=== PATIENT | female | born 1990 | race American Indian/Alaskan Native ===

== ENCOUNTER 2017-02-16 19:28 | Outpatient (CLI) | payer OTHER ==
[2017-02-16 19:41] VITALS: BP 105/59
[2017-02-16] MEDS ORDERED: LACTATED RINGERS 500 ML IV ONE (20:15)
== END 2017-02-16 20:33 | disposition home or self-care (01) ==
LOC: TRG 19:28
PROVIDERS: ATTEND Obstetrics & Gynecology
DX: O21.2 Late vomiting of pregnancy (principal); O26.893 Other specified pregnancy related conditions, third trimester; R10.9 Unspecified abdominal pain; R06.02 Shortness of breath; Z3A.36 36 weeks gestation of pregnancy

== ENCOUNTER 2017-04-16 21:57 | Outpatient (CLI) | payer MEDICAID, OTHER ==
[2017-04-16 23:07] LABS: Urine Drugs of Abuse Note Disclamer
[2017-04-16 23:17] LABS: Bilirubin,Urine NEG (Negative); Blood,Urine NEG (Negative); Ketones,Urine NEG (Negative); Leukocyte Esterase,Urine MOD (Negative); Mucus,Urine FEW /HPF; Nitrite,Urine NEG (Negative); Protein,Urine <15 mg/dL mg/dL (Negative)
[2017-04-16 23:53] LABS: Basophils % (Auto) 0.8 % (0.0-1.8); Hematocrit 26.5 % (30.3-42.9); Hemoglobin 8.6 gm/dl (10.1-14.3); Mean Corpuscular HGB Conc 32 % (30-34); Mean Corpuscular Volume 75 fl (79-97); Platelet Count 248 K/mm3 (140-440); Red Blood Count 3.55 M/mm3 (3.65-5.03); White Blood Count 5.8 K/mm3 (4.5-11.0)
[2017-04-16 23:54] LABS: Mean Corpuscular Hemoglobin 24 pg (28-32)
--- NOTE | 2017-04-17 00:04 | Ultrasound Report ---
FINAL REPORT EXAM: US OB > = 14 WEEKS FETUS HISTORY: no care COMPARISON: None available. TECHNIQUE: Several real-time grayscale and color Doppler images were obtained. FINDINGS: Single live IUP. Estimated gestational age 28 weeks 1 day. Estimated delivery date July 08, 2017. heart rate 150 beats per minute. Estimated weight 1168 grams. BPD 28 weeks 2 days. Head circumference 28 weeks 5 days. Abdominal circumference 27 weeks 6 days. Femoral length 28 weeks 0 days. Normal RENEE 10.6 centimeters. The cervix is closed and measures 3.2 centimeters in length. Placenta location posterior. No placenta previa. position vertex. Visualized heart, stomach, urinary bladder, kidneys, cerebral ventricles are unremarkable. Three-vessel umbilical cord with abdominal insertion. IMPRESSION: Single live IUP. Estimated gestational age 28 weeks 1 day. Estimated delivery date July 08, 2017. No or placental abnormality demonstrated.
[2017-04-17 00:20] LABS: HIV-1 Antigen p24 Non React (Non React); HIVR-1/2 Ab Non React (Non React)
== END 2017-04-16 23:43 | disposition home or self-care (01) ==
LOC: TRG 21:57
PROVIDERS: ATTEND Obstetrics & Gynecology
DX: O47.03 False labor before 37 completed weeks of gestation, third trimester (principal); Z3A.28 28 weeks gestation of pregnancy
CPT/HCPCS: 36415; 59025; 76805; 80307; 81001; 85025; 85660; 86592; 86706; 86762; 86803; 87806

== ENCOUNTER 2017-06-13 14:32 | Outpatient (CLI) | payer MEDICAID ==
[2017-06-13 15:27] LABS: Bilirubin,Urine NEG (Negative); Blood,Urine NEG (Negative); Color,Urine Yellow (Yellow); Mucus,Urine FEW /HPF; Nitrite,Urine NEG (Negative); Protein,Urine <15 mg/dL mg/dL (Negative)
[2017-06-13 15:28] VITALS: BP 109/57
[2017-06-13 16:50] LABS: Amphetamine Screen,Urine PRESUMPTIVE NEGATIVE; Benzodiazepines Screen,Urine PRESUMPTIVE NEGATIVE; Cannabinoid Screen,Urine PRESUMPTIVE NEGATIVE; Cocaine Screen,Urine PRESUMPTIVE NEGATIVE; Methadone Screen,Urine PRESUMPTIVE NEGATIVE; Opiate Screen,Urine PRESUMPTIVE NEGATIVE
--- NOTE | 2017-06-13 19:39 | Ultrasound Report ---
FINAL REPORT EXAM: US OB LIMITED HISTORY: POSSIBLE LEAKING FLUID, RENEE ONLY TECHNIQUE: Real-time sonography was performed of the gravid uterus for measurement the amniotic fluid index and images are submitted for interpretation. PRIORS: 04/16/2017 FINDINGS: There is a single fetus in the uterus in a cephalic presentation. Anatomic survey was not performed. The amniotic fluid index is normal at a 8.4 cm. The heart is beating at a rate of 142 beats per minute. IMPRESSION: Normal amniotic fluid index at 8.4 cm
== END 2017-06-13 18:07 | disposition home or self-care (01) ==
LOC: TRG 14:32
PROVIDERS: ATTEND Obstetrics & Gynecology
DX: Z34.93 Encounter for supervision of normal pregnancy, unspecified, third trimester (principal); Z3A.36 36 weeks gestation of pregnancy
CPT/HCPCS: 76815; 80307; 81001; 87116

== ENCOUNTER 2017-06-20 23:10 | Outpatient (CLI) | payer MEDICAID ==
[2017-06-20 23:25] VITALS: BP 130/85
== END 2017-06-21 00:20 | disposition home or self-care (01) ==
LOC: TRG 23:10
PROVIDERS: ATTEND Obstetrics & Gynecology
DX: O47.1 False labor at or after 37 completed weeks of gestation (principal); Z3A.37 37 weeks gestation of pregnancy
CPT/HCPCS: 59025

== ENCOUNTER 2017-06-22 21:18 | Inpatient (IN) | payer MEDICAID ==
[2017-06-22] MEDS ORDERED: PITOCin/NS 20 UNIT/1000ML DRIP 20,000 MILLIUNITS/1,000 ML BAG IV ONE (21:29)
[2017-06-22] MEDS ORDERED: CYTOTEC ONE (21:45)
[2017-06-22] MEDS ORDERED: METHERGINE IM ONE ×2 (21:46→23:02)
--- NOTE | 2017-06-22 21:53 | Procedure Note ---
OB Delivery Note - Delivery Date of Delivery: 06/22/17 Surgeon: LYNSEY LAKHANI Estimated blood loss: 200cc - Vaginal Delivery presentation: vertex Delivery position: OA Intrapartum events: precipitous labor- <3hr Delivery induction: none Delivery monitor: external FHT, external uterine Route of delivery: Delivery placenta: spontaneous Delivery cord: nuchal cord (tight and cut at perineum), 3 umbilical vessels Episiotomy: none Delivery laceration: 1st degree Anesthesia: none - Infant A at 1 minute: 8 at 5 minutes: 9 Infant Gender: Male (Time of delivery was 21:46, weight is 6#10 or 3015 g)
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
[2017-06-22 22:57] LABS: Basophils % (Auto) 0.4 % (0.0-1.8); Eosinophils # (Auto) 0.1 K/mm3 (0.0-0.4); Eosinophils % (Auto) 1.7 % (0.0-4.3); Hematocrit 27.9 % (30.3-42.9); Hemoglobin 8.7 gm/dl (10.1-14.3); Lymphocytes # (Auto) 2.3 K/mm3 (1.2-5.4); Lymphocytes % (Auto) 36.7 % (13.4-35.0); Mean Corpuscular HGB Conc 31 % (30-34); Monocytes # (Auto) 0.8 K/mm3 (0.0-0.8); Monocytes % (Auto) 12.9 % (0.0-7.3); Platelet Count 289 K/mm3 (140-440); Red Blood Count 4.07 M/mm3 (3.65-5.03)
[2017-06-22 23:00] LABS: Mean Corpuscular Hemoglobin 21 pg (28-32); Mean Corpuscular Volume 69 fl (79-97); Red Cell Distribution Width 20.4 % (13.2-15.2)
[2017-06-22] MEDS ORDERED: LACTATED RINGERS 1,000 ML IV SCH (23:00)
[2017-06-22] MEDS ORDERED: PITOCin/NS 20 UNIT/1000ML DRIP 20 UNITS/1,000 ML BAG IV SCH (23:00)
[2017-06-22] MEDS ORDERED: CYTOTEC PR ONE (23:02)
[2017-06-22 23:29] LABS: Amphetamine Screen,Urine PRESUMPTIVE NEGATIVE; Benzodiazepines Screen,Urine PRESUMPTIVE NEGATIVE; Cannabinoid Screen,Urine PRESUMPTIVE NEGATIVE; Cocaine Screen,Urine PRESUMPTIVE NEGATIVE; Methadone Screen,Urine PRESUMPTIVE NEGATIVE; Opiate Screen,Urine PRESUMPTIVE NEGATIVE
[2017-06-22 23:31] LABS: Hepatitis C Virus Antibody Non-Reactive (NonReactive)
[2017-06-22 23:55] LABS: Rubella IgG Antibody 500 (Immune)
[2017-06-23] MEDS ORDERED: DULCOLAX PR PRN (00:13)
[2017-06-23] MEDS ORDERED: ZOFRAN IV PRN (00:13)
[2017-06-23] MEDS ORDERED: SODIUM CHLORIDE FLUSH SYRINGE 10 ML IV PRN (00:13)
[2017-06-23] MEDS ORDERED: PHENERGAN PO PRN (00:13)
[2017-06-23] MEDS ORDERED: MILK OF MAGNESIA PO PRN (00:13)
[2017-06-23] MEDS ORDERED: TYLENOL PO PRN (00:13)
[2017-06-23] MEDS ORDERED: TUCKS PAD TP PRN (00:13)
[2017-06-23] MEDS ORDERED: LANSINOH TP PRN (00:13)
[2017-06-23] MEDS ORDERED: BENADRYL PO PRN (00:13)
[2017-06-23] MEDS: MOTRIN PO SCH ×4 (01:18→21:33)
--- NOTE | 2017-06-23 08:26 | Progress Note ---
Assessment and Plan Patient doing well, no complaints. lochia scant, VSSAF, post delivery H&H ordered for 1100, patient denies any s/s anemia (she has preexisting anemia) FE ordered. Continue pathway, anticipate d/c home tomorrow if stable. - Patient Problems (1) Vaginal delivery Current Visit: Yes Status: Acute (2) Anemia Current Visit: Yes Status: Acute Subjective - Subjective Date of service: 06/23/17 Principal diagnosis: day #1 s/p vag delivery, no care Patient reports: appetite normal, voiding normally, pain well controlled, ambulating normally, no dizzy ambulation, no nauseated : doing well, bottle feeding Objective - Vital Signs Latest vital signs: Vital Signs Temp Pulse Resp BP BP Pulse Ox 06/23/17 04:19 99.3 F 102/45 06/23/17 00:00 99.5 F 72 18 120/77 99 06/22/17 23:30 83 100 06/22/17 23:25 79 99 06/22/17 23:20 75 135/65 99 06/22/17 23:15 75 99 06/22/17 23:10 79 99 06/22/17 23:05 88 100 06/22/17 23:00 75 100 06/22/17 22:55 76 100 06/22/17 22:50 83 146/63 100 06/22/17 22:45 76 99 06/22/17 22:43 74 144/63 06/22/17 22:41 75 152/63 06/22/17 22:40 78 100 06/22/17 22:35 85 61/25 06/22/17 22:19 76 134/71 06/22/17 22:05 86 16 133/71 133/71 06/22/17 21:51 87 16 134/74 06/22/17 21:50 87 134/74 Intake and Output 06/22/17 06/23/17 06/23/17 23:59 07:59 15:59 Output Total 700 Balance -700 Output: Urine 700 Void 700 Other: Total, Output Amount 400 # Voids Void 2 Weight 54.431 kg Estimated Blood Loss 200 - Exam Breasts: Present: normal Cardiovascular: Present: Regular rate Lungs: Present: Clear to auscultation, Normal air movement Abdomen: Present: normal appearance, soft, normal bowel sounds Vulva: both: laceration/episiotomy Uterus: Present: normal, firm, fundal height at umbilicus Extremities: Present: normal Deep Tendon Reflex Grade: Normal +2 - Labs Labs: Abnormal lab results 06/22/17 Range/Units 21:00 Hgb 8.7 L (10.1-14.3) gm/dl Hct 27.9 L (30.3-42.9) % MCV 69 L (79-97) fl MCH 21 L (28-32) pg RDW 20.4 H (13.2-15.2) % Lymph % (Auto) 36.7 H (13.4-35.0) % [place] % (Auto) 12.9 H (0.0-7.3) %
[2017-06-23 12:06] LABS: Hematocrit 27.8 % (30.3-42.9); Hemoglobin 8.9 gm/dl (10.1-14.3)
[2017-06-23] MEDS: COLACE PO SCH ×2 (18:15→21:33)
[2017-06-23] MEDS: FEOSOL PO SCH ×2 (18:15→21:33)
[2017-06-24] MEDS: MOTRIN PO SCH ×2 (06:23→18:05)
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
[2017-06-24] MEDS: COLACE PO SCH (18:04)
[2017-06-24] MEDS: FEOSOL PO SCH (18:05)
[2017-06-24 18:15] VITALS: BP 108/73
== END 2017-06-24 18:30 | disposition home or self-care (01) | DRG 775 ==
LOC: TRG 21:18 → LD 21:27 → OB 23:49
PROVIDERS: ADMIT Obstetrics & Gynecology; ATTEND Internal Medicine
PROC: 10E0XZZ Delivery of Products of Conception, External Approach (ICD-10-PCS; principal; 2017-06-22)
PROC: 10E0XZZ Delivery of Products of Conception, External Approach (ICD-10-PCS; 2017-06-22)
PROC: 0HQ9XZZ Repair Perineum Skin, External Approach (ICD-10-PCS; 2017-06-22)
DX: O62.3 Precipitate labor (principal); Z3A.37 37 weeks gestation of pregnancy; Z37.0 Single live birth; O70.0 First degree perineal laceration during delivery; Z83.3 Family history of diabetes mellitus; O99.02 Anemia complicating childbirth; D64.9 Anemia, unspecified; O69.1XX0 Labor and delivery complicated by cord around neck, with compression, not applicable or unspecified
CPT/HCPCS: 36415; 80307; 85014; 85018; 85025; 86592; 86706; 86762; 86803; 86850; 86900; 86901; 87806; 99211; G0463; J2210; J2590

== ENCOUNTER 2019-09-13 11:27 | Outpatient (CLI) | payer MEDICAID ==
[2019-09-13 11:52] VITALS: BP 133/74
[2019-09-13] MEDS ORDERED: LACTATED RINGERS 1,000 ML IV SCH (12:00)
[2019-09-13 12:38] LABS: Amorphous Crystals,Urine Few; Bacteria,Urine 2+ /HPF (Negative); Bilirubin,Urine NEG (Negative); Blood,Urine NEG (Negative); Color,Urine Yellow (Yellow); Protein,Urine <15 mg/dL mg/dL (Negative)
== END 2019-09-13 18:36 | disposition home or self-care (01) ==
LOC: TRG 11:27 → APU 11:27 → TRG 18:36
PROVIDERS: ATTEND Obstetrics & Gynecology
DX: O26.893 Other specified pregnancy related conditions, third trimester (principal); R10.9 Unspecified abdominal pain; M54.9 Dorsalgia, unspecified; O47.03 False labor before 37 completed weeks of gestation, third trimester; Z3A.33 33 weeks gestation of pregnancy
CPT/HCPCS: 59025; 81001; 96360; J7120

== ENCOUNTER 2019-10-01 21:05 | Inpatient (IN) | payer MEDICAID ==
[2019-10-01] MEDS ORDERED: LACTATED RINGERS 1,000 ML IV ONE (22:11)
[2019-10-01 22:52] LABS: Bilirubin,Urine NEG (Negative); Blood,Urine NEG (Negative); Color,Urine Yellow (Yellow); Mucus,Urine 3+ /HPF; Protein,Urine <15 mg/dL mg/dL (Negative)
[2019-10-01] MEDS ORDERED: ONDANSETRON 4 MG/2 ML INJ IV ONE (23:58)
[2019-10-01] MEDS ORDERED: ACETAMINOPHEN 500 MG TAB PO ONE (23:59)
[2019-10-02] MEDS ORDERED: fentaNYL 100 MCG/2 ML INJ IV ONE (01:22)
[2019-10-02] MEDS: LACTATED RINGERS 1,000 ML IV SCH ×3 (01:47→17:03)
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
[2019-10-02] MEDS ORDERED: BETAMET ACET/BETAMET NA PH 6 MG/ML INJ 5 ML MDV IM NR (09:00)
[2019-10-02] MEDS ORDERED: AMPICILLIN/NS 2 GM/100 ML 2 GM/100 ML BAG IV ONE (09:00)
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
[2019-10-02] MEDS ORDERED: DOCUSATE SODIUM 100 MG CAP PO PRN (09:31)
[2019-10-02] MEDS ORDERED: ACETAMINOPHEN 325 MG TAB PO PRN ×2 (09:31→21:19)
[2019-10-02] MEDS ORDERED: PRENATAL VIT27-FE FUMARATE-FOLIC ACID VIT TAB PO SCH (10:00)
--- NOTE | 2019-10-02 10:16 | Ultrasound Report ---
ULTRASOUND OBSTETRIC ULTRASOUND BIOPHYSICAL PROFILE INDICATION: Assess weight and amniotic fluid index. Evaluate for placental abruption. Clinical Gestational Age (GA): 36 weeks, 5 days TECHNIQUE: Transabdominal. COMPARISON: OB ultrasound from 06/13/2017. FINDINGS: There is a single intrauterine . Biparietal Diameter = 8.6 cm = 34 weeks, 4 day(s). Head Circumference = 31.1 cm = 34 weeks, 6 day(s). Abdominal Circumference = 31.2 cm = 35 weeks, 1 day(s). Femur Length = 7.2 cm = 37 weeks, 0 day(s). Average Ultrasound Age (AUA) = 35 weeks, 3 day(s). Heart Rate: 151 beats per minute. Estimated Weight in grams (if calculated): 2710 Estimated Weight Growth Percentile (if calculated): Not provided. Position: cephalic. Cervix: closed. Length in cm (if measured): Not measured. Placenta: anterofundal and free of the os. Amniotic Fluid Volume: normal Amniotic Fluid Index (RENEE) in cm (if calculated): 14.7. Maternal Adnexa: No significant abnormality. Biophysical profile: BREATHING MOVEMENT = 2 GROSS BODY MOVEMENT = 2 TONE = 2 QUALITATIVE AMNIOTIC FLUID VOLUME = 2 TOTAL BIOPHYSICAL SCORE = 8/8 IMPRESSION: 1. Single, living intrauterine with estimated sonographic age of 35 weeks, 3 day(s). 2. No sonographic evidence of placental abruption. 3. Biophysical profile score of 8/8. Signer Name: Jair Cook MD Signed: 10/02/2019 10:12 AM Workstation Name: [id number]
[2019-10-02 10:41] LABS: Hematocrit 29.5 % (30.3-42.9); Hemoglobin 9.3 gm/dl (10.1-14.3); Mean Corpuscular HGB Conc 32 % (30-34); Mean Corpuscular Volume 73 fl (79-97); Platelet Count 284 K/mm3 (140-440); Red Blood Count 4.04 M/mm3 (3.65-5.03); Red Cell Distribution Width 18.5 % (13.2-15.2)
[2019-10-02] MEDS: BUTORPHANOL 2 MG/1 ML INJ IV PRN ×2 (10:57→14:58)
[2019-10-02 11:09] LABS: Amphetamine Screen,Urine PRESUMPTIVE NEGATIVE; Benzodiazepines Screen,Urine PRESUMPTIVE NEGATIVE; Cocaine Screen,Urine PRESUMPTIVE NEGATIVE; Methadone Screen,Urine PRESUMPTIVE NEGATIVE; Opiate Screen,Urine PRESUMPTIVE NEGATIVE
[2019-10-02 11:35] LABS: Cannabinoid Screen,Urine PRESUMPTIVE POSITIVE
[2019-10-02] MEDS ORDERED: AMPICILLIN/NS 1 GM/50 ML 1 GM/50 ML BAG IV SCH (14:00)
[2019-10-02] MEDS ORDERED: valACYclovir 500 MG TAB PO SCH (14:00)
[2019-10-02] MEDS ORDERED: OXYTOCIN 20 UNIT/1000ML DRIP 20,000 MILLIUNITS/1,000 ML BAG IV ONE (17:37)
[2019-10-02] MEDS ORDERED: METHYLERGONOVINE MALEATE 0.2 MG/ML VIAL IM ONE (17:38)
--- NOTE | 2019-10-02 18:03 | Procedure Note ---
OB Delivery Note - Delivery Date of Delivery: 10/02/19 Surgeon: LUDMILA CUELLO Estimated blood loss: 300cc - Vaginal Delivery presentation: vertex Delivery position: OA Intrapartum events: labor-<37 weeks, mult.variable deceleratio Delivery induction: none Delivery monitor: external FHT, external uterine Route of delivery: Delivery placenta: spontaneous Episiotomy: none Delivery laceration: other (Left periurethral laceration- hemostatic ) Anesthesia: epidural - Infant A at 1 minute: 8 at 5 minutes: 8 Infant Gender: Male (2259g (4lb 15.6 oz) @ 1739 pm)
--- NOTE | 2019-10-02 18:17 | Anesthesia Consultation ---
Anesthesia Consult and Med Hx Date of service: 10/02/19 - Airway Anesthetic Teeth Evaluation: Good ROM Head & Neck: Adequate Mental/Hyoid Distance: Adequate Mallampati Class: Class II Intubation Access Assessment: Good - Pulmonary Exam CTA: Yes - Cardiac Exam Cardiac Exam: RRR - Pre-Operative Health Status ASA Pre-Surgery Classification: ASA2 Proposed Anesthetic Plan: Epidural - Pulmonary Hx Smoking: Yes Hx Asthma: No Hx Respiratory Symptoms: No SOB: No COPD: No Home Oxygen Therapy: No Hx Pneumonia: No Hx Sleep Apnea: No - Cardiovascular System Hx Hypertension: No Hx Coronary Artery Disease: No Hx Heart Attack/AMI: No Hx Angina: No Hx Percutaneous Transluminal Coronary Angioplasty (PTCA): No Hx Cardia Arrhythmia: No Hx Pacemaker: No Hx Internal Defibrillator: No Hx Valvular Heart Disease: No Hx Heart Murmur: No Hx Peripheral Vascular Disease: No - Central Nervous System Hx Neuromuscular Disorder: No Hx Seizures: No CVA: No Hx Back Pain: No Hx Psychiatric Problems: No - Gastrointestinal Hx Ulcer: No Hx Gastroesophageal Reflux Disease: No - Endocrine Hx Renal Disease: No Hx End Stage Renal Disease: No Hx Cirrhosis: No Hx Liver Disease: No Hx Insulin Dependent Diabetes: No Hx Non-Insulin Dependent Diabetes: No Hx Thyroid Disease: No Hx Hypothyroidism: No Hx Hyperthyroidism: No - Hematic Hx Anemia: No Hx Sickle Cell Disease: No - Other Systems Hx Alcohol Use: No Hx Substance Use: Yes Hx Cancer: No Hx Obesity: Yes
[2019-10-02] MEDS: IBUPROFEN 800 MG TAB PO SCH (21:00)
[2019-10-02] MEDS ORDERED: HYDROcodone/ACETAMINOPHEN 5-325 MG TAB PO PRN (21:19)
[2019-10-02] MEDS ORDERED: WITCH HAZEL/ GLYCERIN PAD TP PRN (21:19)
[2019-10-02] MEDS ORDERED: MAGNESIUM HYDROXIDE (MOM) ORAL LIQD UDC PO PRN (21:19)
[2019-10-02] MEDS ORDERED: PROMETHAZINE 25 MG TAB PO PRN (21:19)
[2019-10-02] MEDS ORDERED: diphenhydrAMINE 25 MG CAP PO PRN (21:19)
[2019-10-02] MEDS ORDERED: BENZOCAINE/MENTHOL 20/0.5% TOP SPRAY 56 GM TP PRN (21:19)
[2019-10-02] MEDS ORDERED: ONDANSETRON 4 MG/2 ML INJ IV PRN (21:19)
[2019-10-02] MEDS ORDERED: LANOLIN/ZINC/DIMETHICONE (LANSINOH) 7 GM TP PRN ×2 (21:19)
[2019-10-02] MEDS ORDERED: PROMETHAZINE 25 MG RECT SUPP PR PRN (21:19)
[2019-10-02] MEDS: FERROUS SULFATE 325 MG TAB PO SCH (23:35)
[2019-10-03 05:52] LABS: Hematocrit 26.5 % (30.3-42.9); Hemoglobin 8.7 gm/dl (10.1-14.3)
[2019-10-03] MEDS: IBUPROFEN 800 MG TAB PO SCH ×4 (06:00→23:39)
--- NOTE | 2019-10-03 06:08 | Post Anesthesia Evaluation ---
- Post Anesthesia Evaluation Patient Participated: Yes Airway Patent: Yes Stable Respiratory Function: Yes Nausea/Vomiting: No Temp > 96.8F: Yes Pain Manageable: Yes Adequeate Hydration: Yes Anesthesia Complications: No Block Receding Appropriately: Yes Patient on Ventilator: No
--- NOTE | 2019-10-03 08:35 | Progress Note ---
Assessment and Plan A: PPD1 s/p of infant Marijuana screen positive, limited care Acute on chronic anemia Mild bradycardia, asymptomatic P: Continue to monitor closely Case management consult Ferrous sulfate supplementation Informed peds of simple renal cyst Subjective - Subjective Date of service: 10/03/19 Principal diagnosis: s/p Interval history: PPD1 s/p at 36 wk EGA Patient reports: appetite normal, voiding normally, pain well controlled, ambulating normally [place]: doing well Objective - Vital Signs Latest vital signs: Vital Signs Temp Pulse Resp BP BP Pulse Ox 10/03/19 05:36 98.0 F 48 L 18 118/57 99 10/02/19 23:24 118/69 10/02/19 23:23 98.5 F 56 L 18 100 10/02/19 21:00 98.7 F 66 18 131/80 99 10/02/19 19:41 61 88 10/02/19 19:38 58 L 122/63 10/02/19 19:36 61 100 10/02/19 19:31 62 100 10/02/19 19:26 58 L 100 10/02/19 19:24 63 124/57 10/02/19 19:21 65 100 10/02/19 19:16 57 L 100 10/02/19 19:11 66 99 10/02/19 19:08 59 L 133/78 10/02/19 19:06 65 98 10/02/19 19:01 58 L 98 10/02/19 18:56 60 100 10/02/19 18:55 54 L 18 132/65 98 10/02/19 18:54 54 L 132/65 10/02/19 18:51 55 L 98 10/02/19 18:46 58 L 98 10/02/19 18:41 58 L 99 10/02/19 18:40 57 L 20 134/68 99 10/02/19 18:39 57 L 134/68 10/02/19 18:36 63 99 10/02/19 18:31 58 L 100 10/02/19 18:26 61 98 10/02/19 18:24 35 L 117/74 10/02/19 18:21 64 98 10/02/19 18:16 60 99 10/02/19 18:11 68 99 10/02/19 18:10 25 L 10/02/19 18:08 58 L 117/59 10/02/19 18:06 60 118/70 99 10/02/19 18:05 97.7 F 58 L 20 117/59 99 10/02/19 18:01 69 83 L 10/02/19 17:57 67 113/62 10/02/19 17:56 68 100 10/02/19 17:54 60 124/56 10/02/19 17:52 62 113/61 10/02/19 17:51 59 L 98 10/02/19 17:49 60 108/59 10/02/19 17:48 61 126/56 10/02/19 17:46 62 99 10/02/19 17:45 61 124/61 10/02/19 17:43 76 107/56 10/02/19 17:41 69 114/56 99 10/02/19 17:39 72 126/72 10/02/19 17:37 69 116/60 10/02/19 17:35 78 107/59 93 10/02/19 17:34 70 73 L 10/02/19 17:33 70 126/61 10/02/19 17:31 96 H 134/94 10/02/19 17:30 69 96 10/02/19 17:28 87 64 L 10/02/19 17:26 65 137/70 10/02/19 17:25 69 99 10/02/19 17:20 64 122/65 10/02/19 17:19 66 93 10/02/19 17:17 98.0 F 67 122/65 100 10/02/19 11:50 67 117/75 10/02/19 11:49 98.9 F 67 20 117/75 Intake and Output 10/02/19 10/03/19 10/03/19 23:59 07:59 15:59 Intake Total 602.083 400 Output Total 525 1000 Balance 77.083 -600 Intake: IV 302.083 Lactated Ringers 1,000 ml 302.083 @ 125 mls/hr IV DIRECT JAMEL Rx#:[id number] Oral 400 Intake, Free Water 300 Output: Urine 525 1000 Void 525 1000 Other: Total, Intake Amount 200 Total, Output Amount 450 600 # Voids Void 1 1 Estimated Blood Loss 300 - Exam Lungs: Present: Normal air movement Abdomen: Present: soft. Absent: distention Uterus: Present: firm, fundal height below umbilicus. Absent: bogginess Extremities: Present: normal - Labs Labs: Abnormal lab results 10/02/19 10/03/19 Range/Units 10:14 05:11 WBC 3.0 L (4.5-11.0) K/mm3 Hgb 9.3 L 8.7 L (10.1-14.3) gm/dl Hct 29.5 L 26.5 L (30.3-42.9) % MCV 73 L (79-97) fl MCH 23 L (28-32) pg RDW 18.5 H (13.2-15.2) %
[2019-10-03] MEDS: FERROUS SULFATE 325 MG TAB PO SCH ×2 (14:07→22:22)
[2019-10-03] MEDS ORDERED: MEASLES, MUMPS & RUBELLA 12,500 UNIT/0.5 ML VACCINE SUB-Q ONE (18:03)
--- NOTE | 2019-10-04 02:34 | Discharge Summary ---
Providers - Providers Date of Admission: 10/01/19 21:06 Date of discharge: 10/04/19 Attending physician: MADELINE MENSAH MD 10/03/19 08:35 Consult to Case Management [CONS] Routine Services Needed at Discharge: Luster Applicator Notified:: cm notified Additional Physician Instructions: Limited care (1 visit), positive marijuana on UDS, delivery. Primary care physician: MADELINE MENSAH MD Hospitalization Reason for admission: IUP - , vaginal bleeding, labor Delivery: Episiotomy: none Laceration: other (periurethral, not repaired) Other procedures: none complications: none Discharge diagnosis: delivery Hospital course: Pt arrived in early labor with vaginal bleeding and progressed to of viable infant. course clinically uncomplicated. Condition at discharge: Good Disposition: DC-01 TO HOME OR SELFCARE Plan - Discharge Medications Prescriptions: Ferrous Sulfate [Feosol 325 MG tab] 325 mg PO BID #60 tablet Ibuprofen [Motrin] 600 mg PO Q6H PRN #60 tablet PRN Reason: Pain - Provider Discharge Summary Activity: routine, no sex for 6 weeks, no heavy lifting 4 weeks, no strenuous exercise Diet: routine Instructions: routine Additional instructions: [] Smoking cessation referral if applicable(refer to patient education folder for contact #) [] Refer to [facility]'s [facility] Booklet Call your doctor immediately for: * Fever > 100.5 * Heavy vaginal bleeding ( >1 pad per hour) * Severe persistent headache * Shortness of breath * Reddened, hot, painful area to leg or breast * Drainage or odor from incision. * Keep incision clean and dry at all times and follow doctor's instructions regarding bathing/showering - Follow up plan Follow up: MADELINE MENSAH MD [Primary Care Provider] - 14 Days (Please call [facility] to schedule appointment.)
[2019-10-04] MEDS: IBUPROFEN 800 MG TAB PO SCH (05:20)
[2019-10-04] MEDS ORDERED: DIPHtheria,PERTUSSIS(ACELL),TETANUS VACCINE/PF 0.5 ML VIAL IM ONE (06:00)
[2019-10-04] MEDS: FERROUS SULFATE 325 MG TAB PO SCH (09:39)
[2019-10-04 09:57] VITALS: BP 122/83
== END 2019-10-04 13:30 | disposition home or self-care (01) | DRG 774 ==
LOC: TRG 21:05 → LD 21:06 → OB 10-02 21:29
PROVIDERS: ADMIT Obstetrics & Gynecology; ATTEND Obstetrics & Gynecology
PROC: 10E0XZZ Delivery of Products of Conception, External Approach (ICD-10-PCS; principal; 2019-10-02)
PROC: 3E0R3BZ Introduction of Anesthetic Agent into Spinal Canal, Percutaneous Approach (ICD-10-PCS; 2019-10-02)
PROC: 00HU33Z Insertion of Infusion Device into Spinal Canal, Percutaneous Approach (ICD-10-PCS; 2019-10-02)
PROC: 3E0134Z Introduction of Serum, Toxoid and Vaccine into Subcutaneous Tissue, Percutaneous Approach (ICD-10-PCS; 2019-10-03)
PROC: 3E0234Z Introduction of Serum, Toxoid and Vaccine into Muscle, Percutaneous Approach (ICD-10-PCS; 2019-10-04)
DX: O76 Abnormality in fetal heart rate and rhythm complicating labor and delivery (principal); O98.32 Other infections with a predominantly sexual mode of transmission complicating childbirth; O71.82 Other specified trauma to perineum and vulva; O99.02 Anemia complicating childbirth; D63.8 Anemia in other chronic diseases classified elsewhere; O99.89 Other specified diseases and conditions complicating pregnancy, childbirth and the puerperium; R00.1 Bradycardia, unspecified; O99.324 Drug use complicating childbirth; F12.10 Cannabis abuse, uncomplicated; O99.334 Smoking (tobacco) complicating childbirth; A60.00 Herpesviral infection of urogenital system, unspecified; O99.214 Obesity complicating childbirth; E66.9 Obesity, unspecified; Z3A.36 36 weeks gestation of pregnancy; Z37.0 Single live birth; Z91.040 Latex allergy status; Z80.9 Family history of malignant neoplasm, unspecified; Z23 Encounter for immunization
CPT/HCPCS: 36415; 76816; 76819; 80307; 81001; 85014; 85018; 85027; 86850; 86900; 86901; 88307; G0378; J0290; J0595; J0702; J2210; J2405; J2590; J3010; J7120

== ENCOUNTER 2020-07-07 16:08 | Outpatient (CLI) | payer MEDICAID ==
[2020-07-07] MEDS ORDERED: LACTATED RINGERS 1,000 ML IV SCH (16:30)
[2020-07-07 16:53] LABS: Bilirubin,Urine NEG (Negative); Blood,Urine NEG (Negative); Color,Urine Yellow (Yellow); Mucus,Urine FEW /HPF; Protein,Urine <15 mg/dL mg/dL (Negative)
[2020-07-07 17:04] LABS: Amphetamine Screen,Urine Negative; Benzodiazepines Screen,Urine Negative; Cocaine Screen,Urine Negative; Methadone Screen,Urine Negative; Opiate Screen,Urine Negative
[2020-07-07 17:33] LABS: Cannabinoid Screen,Urine Positive
[2020-07-07 18:38] VITALS: BP 108/56
[2020-07-07] MEDS ORDERED: NIFEdipine*For Tocolysis only* 10 MG CAPSULE PO ONE (18:50)
== END 2020-07-07 19:38 | disposition home or self-care (01) ==
LOC: TRG 16:08 → APU 16:09 → TRG 19:38
PROVIDERS: ATTEND Obstetrics & Gynecology
DX: O62.9 Abnormality of forces of labor, unspecified (principal); Z3A.28 28 weeks gestation of pregnancy
CPT/HCPCS: 59025; 80307; 81001; 87086; 96360; 96361; J7120

== ENCOUNTER 2020-07-31 19:05 | Outpatient (CLI) | payer MEDICAID ==
[2020-07-31 19:31] VITALS: BP 116/56
[2020-07-31] MEDS ORDERED: BETAMET ACET/BETAMET NA PH 6 MG/ML INJ 5 ML MDV IM ONE (20:22)
== END 2020-07-31 20:06 | disposition home or self-care (01) ==
LOC: TRG 19:05 → APU 19:27 → TRG 20:06
PROVIDERS: ATTEND Obstetrics & Gynecology
DX: Z34.93 Encounter for supervision of normal pregnancy, unspecified, third trimester (principal); Z3A.32 32 weeks gestation of pregnancy; Z87.891 Personal history of nicotine dependence
CPT/HCPCS: 59025; 96372; J0702

== ENCOUNTER 2020-08-02 16:52 | Observation (INO) | payer MEDICAID ==
[2020-08-02] MEDS ORDERED: LACTATED RINGERS 1,000 ML ONE (17:02)
[2020-08-02] MEDS ORDERED: LACTATED RINGERS 500 ML IV ONE (17:48)
[2020-08-02 18:54] LABS: Basophils % (Auto) 0.2 % (0.0-1.8); Hematocrit 29.7 % (30.3-42.9); Hemoglobin 9.5 gm/dl (10.1-14.3); Lymphocytes # (Auto) 1.6 K/mm3 (1.2-5.4); Lymphocytes % (Auto) 21.7 % (13.4-35.0); Mean Corpuscular HGB Conc 32 % (30-34); Mean Corpuscular Volume 72 fl (79-97); Monocytes # (Auto) 0.9 K/mm3 (0.0-0.8); Monocytes % (Auto) 11.9 % (0.0-7.3); Platelet Count 255 K/mm3 (140-440); Red Blood Count 4.13 M/mm3 (3.65-5.03); Red Cell Distribution Width 18.9 % (13.2-15.2)
--- NOTE | 2020-08-02 19:25 | Ultrasound Report ---
ULTRASOUND OBSTETRIC LIMITED ULTRASOUND BIOPHYSICAL PROFILE INDICATION / CLINICAL INFORMATION: labor. Clinical Gestational Age (GA): 33.1 weeks.days COMPARISON: None available. FINDINGS: BREATHING MOVEMENT = 2 GROSS BODY MOVEMENT = 2 TONE = 2 QUALITATIVE AMNIOTIC FLUID VOLUME = 2 TOTAL BIOPHYSICAL SCORE = 8/8 HEART RATE (beats per minute): 148-153 AMNIOTIC FLUID INDEX (cm) = 7.2 (normal = 7-24 cm) PRESENTATION: Cephalic. ADDITIONAL FINDINGS: Placenta is anterior/right lateral in location. Grade 1 morphology. 1.7 cm cervi acroline length by translabial examination. IMPRESSION: 1. Biophysical Score = 8/8 2. Cervix is short measuring 1.7 cm without definite funneling. Additional findings as above. Signer Name: Thierno Moon MD Signed: 08/02/2020 7:20 PM Workstation Name: [id number]
--- NOTE | 2020-08-02 19:25 | Ultrasound Report ---
ULTRASOUND OBSTETRIC LIMITED ULTRASOUND BIOPHYSICAL PROFILE INDICATION / CLINICAL INFORMATION: labor. Clinical Gestational Age (GA): 33.1 weeks.days COMPARISON: None available. FINDINGS: BREATHING MOVEMENT = 2 GROSS BODY MOVEMENT = 2 TONE = 2 QUALITATIVE AMNIOTIC FLUID VOLUME = 2 TOTAL BIOPHYSICAL SCORE = 8/8 HEART RATE (beats per minute): 148-153 AMNIOTIC FLUID INDEX (cm) = 7.2 (normal = 7-24 cm) PRESENTATION: Cephalic. ADDITIONAL FINDINGS: Placenta is anterior/right lateral in location. Grade 1 morphology. 1.7 cm cervi caroline length by translabial examination. IMPRESSION: 1. Biophysical Score = 8/8 2. Cervix is short measuring 1.7 cm without definite funneling. Additional findings as above. Signer Name: Thierno Moon MD Signed: 08/02/2020 7:20 PM Workstation Name: [id number]
[2020-08-02 22:02] LABS: Bilirubin,Urine NEG (Negative); Blood,Urine NEG (Negative); Color,Urine Yellow (Yellow); Protein,Urine <15 mg/dL mg/dL (Negative)
[2020-08-02] MEDS: LACTATED RINGERS 1,000 ML IV SCH (23:47)
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
[2020-08-03] MEDS ORDERED: TERBUTALINE 1 MG/1 ML INJ IVP ONE (05:26)
[2020-08-03] MEDS ORDERED: TERBUTALINE 1 MG/1 ML INJ ONE (05:31)
--- NOTE | 2020-08-03 05:46 | Event Note ---
Date: 08/03/20 Called to evaluate due to prolonged deceleration. FHT: 150 variability: moderate contactions: q 2, irregular decelerations: prolonged deceleration, now resolved Cervix: 280/-3 -infant cephalic Plan: -minimal cervical change noted -terb x 1, repeat prn -continue IV fluids -if PTL declared, plan for NICU consult -R/B/A/I for CD reviewed, all questions answered, the patient expressed understanding.
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
[2020-08-03] MEDS: LACTATED RINGERS 1,000 ML IV SCH (09:26)
[2020-08-03 15:02] VITALS: BP 122/62
== END 2020-08-03 16:48 | disposition home or self-care (01) ==
LOC: TRG 16:52 → APU 17:18 → TRG 21:04 → LD 21:25 → INTOOBSV 21:25
PROVIDERS: ADMIT Obstetrics & Gynecology; ATTEND Obstetrics & Gynecology
DX: O9A.213 Injury, poisoning and certain other consequences of external causes complicating pregnancy, third trimester (principal); O42.92 Full-term premature rupture of membranes, unspecified as to length of time between rupture and onset of labor; O62.9 Abnormality of forces of labor, unspecified; S39.91XA Unspecified injury of abdomen, initial encounter; Z79.899 Other long term (current) drug therapy; Y04.0XXA Assault by unarmed brawl or fight, initial encounter; Y93.89 Activity, other specified; Y92.89 Other specified places as the place of occurrence of the external cause; Y99.8 Other external cause status
CPT/HCPCS: 36415; 59025; 76815; 76819; 81001; 82731; 84112; 85025; 86850; 86900; 86901; 87086; 87116; 87210; 96372; 96374; G0378; J0702; J3105; J7120; 96360

== ENCOUNTER 2020-08-13 15:56 | Observation (INO) | payer MEDICAID ==
[2020-08-13] MEDS: LACTATED RINGERS 1,000 ML IV SCH ×2 (17:05→22:11)
[2020-08-13 17:08] LABS: Bilirubin,Urine NEG (Negative); Blood,Urine NEG (Negative); Color,Urine Yellow (Yellow); Mucus,Urine FEW /HPF; Protein,Urine <15 mg/dL mg/dL (Negative); Urobilinogen,Urine < 2.0 mg/dL (<2.0)
[2020-08-13] MEDS ORDERED: ceFAZolin/NS 1 GM/50 ML 1 GM/50 ML BAG IV ONE (17:47)
--- NOTE | 2020-08-13 18:53 | Ultrasound Report ---
US OB bpp ea add exam, US OB limited INDICATION / CLINICAL INFORMATION: non reassurring FHT. COMPARISON: 08/02/2020 FINDINGS: Biophysical profile: breathing movements-2 movements-2 posture and tone-2 Amniotic fluid volume-2 Biophysical profile score 8/8 Single, viable intrauterine in cephalic presentation. heart rate 146. Placenta is ant erior and to the maternal right. Amniotic fluid volume is normal, with fluid index of 7.9 cm. IMPRESSION: 1. Biophysical profile score of 8/8. 2. Viable third trimester intrauterine in cephalic presentation. Signer Name: Warren Siddiqi MD Signed: 08/13/2020 6:48 PM Workstation Name: [id number]
[2020-08-13] MEDS ORDERED: ACETAMINOPHEN 325 MG TAB PO PRN (19:25)
[2020-08-13] MEDS ORDERED: SIMETHICONE 80 MG CHEW TAB PO PRN (19:25)
[2020-08-13] MEDS ORDERED: diphenhydrAMINE 25 MG CAP PO PRN (19:25)
[2020-08-13] MEDS ORDERED: ONDANSETRON 4 MG/2 ML INJ IV PRN (19:25)
[2020-08-13] MEDS ORDERED: DOCUSATE SODIUM 100 MG CAP PO PRN (19:25)
[2020-08-13] MEDS ORDERED: SODIUM CHLORIDE NASAL SPRAY 44ML NS PRN (19:25)
[2020-08-13] MEDS ORDERED: MAGNESIUM HYDROXIDE (MOM) ORAL LIQD UDC PO PRN (19:25)
[2020-08-13] MEDS ORDERED: AMPICILLIN/NS 2 GM/100 ML 2 GM/100 ML BAG IV ONE (19:25)
[2020-08-13] MEDS ORDERED: BETAMET ACET/BETAMET NA PH 6 MG/ML INJ 5 ML MDV IM SCH (20:00)
[2020-08-13 20:32] LABS: Basophils # (Auto) 0.1 K/mm3 (0.0-0.1); Basophils % (Auto) 0.8 % (0.0-1.8); Eosinophils # (Auto) 0.1 K/mm3 (0.0-0.4); Eosinophils % (Auto) 1.3 % (0.0-4.3); Hematocrit 28.9 % (30.3-42.9); Hemoglobin 9.1 gm/dl (10.1-14.3); Lymphocytes # (Auto) 2.8 K/mm3 (1.2-5.4); Lymphocytes % (Auto) 31.6 % (13.4-35.0); Mean Corpuscular HGB Conc 32 % (30-34); Mean Corpuscular Volume 72 fl (79-97); Monocytes # (Auto) 1.1 K/mm3 (0.0-0.8); Monocytes % (Auto) 12.6 % (0.0-7.3); Platelet Count 366 K/mm3 (140-440); Red Blood Count 4.03 M/mm3 (3.65-5.03); Red Cell Distribution Width 18.9 % (13.2-15.2)
[2020-08-13] MEDS ORDERED: TERBUTALINE 1 MG/1 ML INJ SUB-Q PRN (20:57)
[2020-08-13] MEDS ORDERED: OXYTOCIN 10 UNIT/1 ML INJ IM PRN (20:57)
[2020-08-13] MEDS ORDERED: fentaNYL 100 MCG/2 ML INJ IV PRN (20:57)
[2020-08-13] MEDS ORDERED: ePHEDrine SULFATE 50 MG/1 ML INJ IV PRN (20:57)
[2020-08-13] MEDS ORDERED: miSOPROStol 200 MCG TAB PR PRN (20:57)
[2020-08-13] MEDS ORDERED: NALOXONE 0.4 MG/1 ML INJ IV PRN (20:57)
[2020-08-13] MEDS ORDERED: MINERAL OIL 30 ML ORAL LIQD PO PRN (20:57)
[2020-08-13] MEDS ORDERED: METHYLERGONOVINE MALEATE 0.2 MG/ML VIAL IM PRN (20:57)
[2020-08-13] MEDS ORDERED: LIDOCAINE (2%) 20 MG/1 ML VIAL 20 ML MDV INFILTRATI ONE (20:57)
[2020-08-13] MEDS ORDERED: BUTORPHANOL 2 MG/1 ML INJ IV PRN ×2 (20:57)
[2020-08-13] MEDS ORDERED: LACTATED RINGERS 1,000 ML IV SCH (21:00)
[2020-08-13] MEDS ORDERED: OXYTOCIN DRIP 30 UNITS/500 ML BAG IV SCH ×2 (21:00)
[2020-08-13] MEDS ORDERED: AMPICILLIN/NS 1 GM/50 ML 1 GM/50 ML BAG IV SCH (23:45)
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
[2020-08-14 09:44] VITALS: BP 103/58
--- NOTE | 2020-08-14 09:58 | Event Note ---
Date: 08/14/20 Pt reports frustration that she is not being given medication to make her labor progress. Pt informed that at 34w6d, she will not receive labor augmentation unless indicated. Cervix rechecked and remains posterior and 4-4.5 cm, very posterior. As she has not changed her cervix after over 12 hours of observation, she will be discharged home with follow up next week.
--- NOTE | 2020-08-14 09:59 | Short Stay Summary ---
Short Stay Documentation Date of service: 08/14/20 - History H&P: dictated - Allergies and Medications Current Medications: Allergies latex Allergy (Severe, Verified 08/01/20 20:24) Anaphylaxis Home Medications Medication Instructions Recorded Confirmed Last Taken Type Ferrous Sulfate [Feosol 325 MG tab] 325 mg PO BID #60 tablet 10/03/19 08/03/20 08/02/20 10:00 Rx Ibuprofen [Motrin] 600 mg PO Q6H PRN #60 tablet 10/03/19 08/03/20 Unknown Rx Multivitamin Tablet 1 tab PO DAILY 08/03/20 08/03/20 08/01/20 10:00 History Active Medications Acetaminophen (Acetaminophen 325 Mg Tab) 650 mg PO Q4H PRN PRN Reason: Pain MILD(1-3)/Fever >100.5/PAIGE Butorphanol Tartrate (Butorphanol 2 Mg/1 Ml Inj) 1 mg IV Q2H PRN PRN Reason: Pain, Moderate(4-6) LABOR PAIN Butorphanol Tartrate (Butorphanol 2 Mg/1 Ml Inj) 2 mg IV Q2H PRN PRN Reason: Pain , Severe (7-10) Diphenhydramine HCl (Diphenhydramine 25 Mg Cap) 25 mg PO Q6H PRN PRN Reason: Itching Docusate Sodium (Docusate Sodium 100 Mg Cap) 100 mg PO Q12H PRN PRN Reason: Constipation Ephedrine Sulfate (Ephedrine Sulfate 50 Mg/1 Ml Inj) 10 mg IV Q2M PRN PRN Reason: Hypotension Fentanyl (Fentanyl 100 Mcg/2 Ml Inj) 100 mcg IV Q2H PRN PRN Reason: Pain,Severe (7-10) LABOR PAIN Last Admin: 08/13/20 22:11 Dose: 100 mcg Documented by: Lactated Ringer's (Lactated Ringers) 1,000 mls @ 125 mls/hr IV DIRECT JAMEL Last Admin: 08/13/20 22:11 Dose: 125 mls/hr Documented by: Ampicillin Sodium (Ampicillin/Ns 1 Gm/50 Ml) 1 gm in 50 mls @ 100 mls/hr IV Q4H JAMEL; Protocol Oxytocin/Sodium Chloride (Pitocin/Ns 30 Unit/500ml) 30 units in 500 mls @ 2 mls/hr IV TITR JAMEL; Protocol Lactated Ringer's (Lactated Ringers) 1,000 mls @ 125 mls/hr IV DIRECT JAMEL Oxytocin/Sodium Chloride (Pitocin/Ns 30 Unit/500ml) 30 units in 500 mls @ 40 m ls/hr IV TITR JAMEL; Protocol Magnesium Hydroxide (Magnesium Hydroxide (Mom) Oral Liqd Udc) 30 ml PO QHS PRN PRN Reason: Laxative Effect Methylergonovine Maleate (Methylergonovine Maleate 0.2 Mg/Ml Vial) 0.2 mg IM ONCE PRN PRN Reason: Uterine Bleeding Mineral Oil (Mineral Oil 30 Ml Oral Liqd) 30 ml PO QHS PRN PRN Reason: Constipation Misoprostol (Misoprostol 200 Mcg Tab) 800 mcg HI ONCE PRN PRN Reason: Uterine Bleeding Multivitamins/Iron/Calcium ( Awt75-Dh Fumarate-Folic Acid Vit Tab) 1 each PO QDAY JAMEL Naloxone HCl (Naloxone 0.4 Mg/1 Ml Inj) 0.1 mg IV Q2MIN PRN PRN Reason: Res Rate </= 8 or 02 SAT < 92% Ondansetron HCl (Ondansetron 4 Mg/2 Ml Inj) 4 mg IV Q6H PRN PRN Reason: Nausea And Vomiting Oxytocin (Oxytocin 10 Unit/1 Ml Inj) 10 unit IM ONCE PRN PRN Reason: Uterine Bleeding Simethicone (Simethicone 80 Mg Chew Tab) 80 mg PO Q6H PRN PRN Reason: Gas pain Sodium Chloride (Sodium Chloride Nasal [place] 44ml) 2 spray NS Q4H PRN PRN Reason: Congestion Terbutaline Sulfate (Terbutaline 1 Mg/1 Ml Inj) 0.25 mg SUB-Q ONCE PRN PRN Reason: Hyperstimulation/Hypertonicity - Hospital course Hospital course: Pt was admitted for observation secondary to labor at 34 wks. She progressed from 3 cm to 4 cm but arrested there over ~ 15 hours of observation. She was discharged home with labor precautions and instructed to follow up in the office for her scheduled visit. - Disposition Condition at discharge: Stable Disposition: DC-01 TO HOME OR SELFCARE - Discharge Diagnoses (1) labor Status: Acute Qualifiers: labor trimester: third trimester labor delivery status: without delivery Qualified Code(s): O60.03 - labor without delivery, third trimester (2) Limited care in third trimester Status: Acute Short Stay Discharge Plan Activity: no restrictions Weight Bearing Status: Full Weight Bearing Follow up with: LUDMILA CUELLO MD [Primary Care Provider] - 7 Days
[2020-08-14] MEDS ORDERED: PRENATAL VIT27-FE FUMARATE-FOLIC ACID VIT TAB PO SCH (10:00)
== END 2020-08-14 10:10 | disposition home or self-care (01) ==
LOC: TRG 15:56 → APU 15:57 → TRG 19:25 → LD 19:25
PROVIDERS: ADMIT Obstetrics & Gynecology; ATTEND Obstetrics & Gynecology
DX: O60.03 Preterm labor without delivery, third trimester (principal); Z3A.35 35 weeks gestation of pregnancy
CPT/HCPCS: 36415; 59025; 76815; 76819; 81001; 85025; 86850; 86900; 86901; 96365; 96367; 96372; 96375; G0378; J0290; J0690; J0702; J3010; J7120; 96360

== ENCOUNTER 2020-08-24 09:27 | Outpatient (CLI) | payer MEDICAID | END 2020-08-24 10:20 | disposition left against medical advice (07) | LOC: TRG 09:27 → APU 09:29 → TRG 10:20 | PROVIDERS: ATTEND Obstetrics & Gynecology | DX: O47.1 False labor at or after 37 completed weeks of gestation (principal); Z3A.37 37 weeks gestation of pregnancy | CPT/HCPCS: 59025 ==

== ENCOUNTER 2021-09-23 20:22 | Emergency (ER) | payer MEDICAID ==
[2021-09-23 22:02] LABS: Basophils % (Auto) 0.3 % (0.0-1.8); Eosinophils # (Auto) 0.1 K/mm3 (0.0-0.4); Eosinophils % (Auto) 2.2 % (0.0-4.3); Hematocrit 35.3 % (30.3-42.9); Hemoglobin 11.4 gm/dl (10.1-14.3); Lymphocytes # (Auto) 2.2 K/mm3 (1.2-5.4); Lymphocytes % (Auto) 40.1 % (13.4-35.0); Mean Corpuscular HGB Conc 32 % (30-34); Mean Corpuscular Volume 85 fl (79-97); Monocytes # (Auto) 0.3 K/mm3 (0.0-0.8); Monocytes % (Auto) 5.9 % (0.0-7.3); Platelet Count 372 K/mm3 (140-440); Red Blood Count 4.17 M/mm3 (3.65-5.03); Red Cell Distribution Width 15.9 % (13.2-15.2)
[2021-09-23 23:36] LABS: Bilirubin,Urine NEG (Negative); Blood,Urine NEG (Negative); Color,Urine Yellow (Yellow); Mucus,Urine FEW /HPF; Protein,Urine <15 mg/dL mg/dL (Negative); Urobilinogen,Urine < 2.0 mg/dL (<2.0)
[2021-09-24] MEDS ORDERED: CYCLOBENZAPRINE 10 MG TAB PO ONE (01:58)
[2021-09-24] MEDS ORDERED: KETOROLAC 30 MG/1 ML INJ IM ONE (01:58)
[2021-09-24] MEDS ORDERED: ONDANSETRON 4 MG/2 ML INJ IV ONE (01:58)
--- NOTE | 2021-09-24 03:14 | Cat Scan Report ---
CT ABDOMEN AND PELVIS WITHOUT CONTRAST INDICATION / CLINICAL INFORMATION: LEFT sided flank pain. TECHNIQUE: Axial CT images were obtained through the abdomen and pelvis without IV contrast. All CT scans at this location are performed using CT dose reduction for ALARA by means of automated exposure control. COMPARISON: None available. FINDINGS: LOWER CHEST: No significant abnormality of the imaged chest. LIVER: No focal lesion. No acute findings. GALLBLADDER: No significant abnormality. BILE DUCTS: No significant abnormality. SPLEEN: No significant abnormality. PANCREAS: No significant abnormality. ADRENALS: No significant abnormality. KIDNEYS/URETERS: No stones or hydronephrosis. No solid renal lesion. STOMACH / DUODENUM / SMALL BOWEL: The stomach, duodenum, and small bowel demonstrate no significant a bnormality. No specific abnormality of the mesentery demonstrated. COLON: No significant abnormality. APPENDIX: High attenuation material is present within the appendix. Appendix is normal in size and de monstrates no inflammatory change. PERITONEUM: No free air or free fluid are present within the abdomen or pelvis. LYMPH NODES: No significant adenopathy. AORTA / ARTERIES: No significant abnormality. IVC / VEINS: No significant abnormality. URINARY BLADDER: No significant abnormality. REPRODUCTIVE ORGANS: No significant abnormality. ADDITIONAL ABDOMINAL/PELVIC FINDINGS: None. SKELETAL SYSTEM: No significant abnormality. IMPRESSION: 1. No acute findings within the abdomen or pelvis. Signer Name: Darron Alvares II, MD Signed: 09/24/2021 3:10 AM Workstation Name: [id number]
--- NOTE | 2021-09-24 04:56 | Emergency Department Report ---
ED Female HPI - General Chief complaint: Vaginal Bleeding Stated complaint: BACK/LOWER AB PAIN Source: patient Mode of arrival: Ambulatory Limitations: No Limitations - History of Present Illness Initial comments: Patient is a 31-year-old -[place] female with no past medical history who presents to the ED with complaint of acute onset persistent left flank pain for the last 1 week. Patient states that the pain is constant and persistent and worse with movement. Patient also complains of persistent heavy vaginal bleeding intermittently for the last 5 months. Patient states that she has not been evaluated by her [employer] physician. Patient denies dysuria, urinary frequency and urgency, chest pain, shortness of breath, low back pain, nausea, vomiting, diarrhea, fever, chills, cough, traumatic injury or heavy lifting, numbness and tingling or weakness of lower extremities bilaterally. MD Complaint: vaginal bleeding, other (Left flank pain) -: week(s) (1) Location: other (Left flank pain) Radiation: non-radiating Severity: severe Severity scale (0 -10): 8 Quality: cramping, sharp Consistency: constant Improves with: none Worsens with: menstrual period Are you Now?: No Last Menstrual Period: 09/19/21 EDC: 06/26/22 Associated Symptoms: vaginal bleeding, abdominal pain (Left flank pain), hematur ia. denies: nausea/vomiting, fever/chills, headaches, loss of appetite, dysuria, shortness of breath, syncope, weakness - Related Data Sexually active: Yes Home Medications Medication Instructions Recorded Confirmed Last Taken Multivitamin Tablet 1 tab PO DAILY 08/03/20 08/03/20 08/01/20 10:00 Previous Rx's Medication Instructions Recorded Last Taken Type Ferrous Sulfate [Feosol 325 MG tab] 325 mg PO BID #60 tablet 10/03/19 08/02/20 10:00 Rx Ibuprofen [Motrin] 600 mg PO Q6H PRN #60 tablet 10/03/19 Unknown Rx Ibuprofen [Motrin] 800 mg PO Q8HR PRN #30 tablet 09/24/21 Unknown Rx cephALEXin [Keflex] 500 mg PO Q8HR #30 cap 09/24/21 Unknown Rx medroxyPROGESTERone ACETATE 10 mg PO DAILY #14 tab 09/24/21 Unknown Rx [Medroxyprogesterone Acetate] methOCARBAMOL [Robaxin TAB] 750 mg PO Q12H PRN #24 tab 09/24/21 Unknown Rx Allergies Allergy/AdvReac Type Severity Reaction Status Date / Time latex Allergy Severe Anaphylaxis Verified 08/01/20 20:24 ED Review of Systems ROS: Stated complaint: BACK/LOWER AB PAIN Other details as noted in HPI Constitutional: denies: chills, fever Eyes: denies: eye pain, eye discharge, vision change ENT: denies: ear pain, throat pain Respiratory: denies: cough, shortness of breath, wheezing Cardiovascular: denies: chest pain, palpitations Endocrine: no symptoms reported Gastrointestinal: abdominal pain (Left flank pain). denies: nausea, vomiting, diarrhea Genitourinary: abnormal menses (Vaginal bleeding). denies: urgency, dysuria, discharge Musculoskeletal: other (Left flank pain). denies: back pain, joint swelling, arthralgia Skin: denies: rash, lesions Neurological: denies: headache, weakness, paresthesias Psychiatric: denies: anxiety, depression Hematological/Lymphatic: denies: easy bleeding, easy bruising ED Past Medical Hx - Past Medical History Hx Hypertension: No Hx Heart Attack/AMI: No Hx Congestive Heart Failure: No Hx Diabetes: No Hx Deep Vein Thrombosis: No Hx Liver Disease: No Hx Renal Disease: No Hx Sickle Cell Disease: No Hx Seizures: No Hx Asthma: No Hx COPD: No Hx HIV: No - Surgical History Hx Pacemaker: No Hx Internal Defibrillator: No - Social History Smoking Status: Never Smoker - Medications Home Medications: Home Medications Medication Instructions Recorded Confirmed Last Taken Type Ferrous Sulfate [Feosol 325 MG tab] 325 mg PO BID #60 tablet 10/03/19 08/03/20 08/02/20 10:00 Rx Ibuprofen [Motrin] 600 mg PO Q6H PRN #60 tablet 10/03/19 08/03/20 Unknown Rx Multivitamin Tablet 1 tab PO DAILY 08/03/20 08/03/20 08/01/20 10:00 History Ibuprofen [Motrin] 800 mg PO Q8HR PRN #30 tablet 09/24/21 Unknown Rx cephALEXin [Keflex] 500 mg PO Q8HR #30 cap 09/24/21 Unknown Rx medroxyPROGESTERone ACETATE 10 mg PO DAILY #14 tab 09/24/21 Unknown Rx [Medroxyprogesterone Acetate] methOCARBAMOL [Robaxin TAB] 750 mg PO Q12H PRN #24 tab 09/24/21 Unknown Rx ED Physical Exam - General Limitations: No Limitations General appearance: alert, in no apparent distress - Head Head exam: Present: atraumatic, normocephalic, normal inspection - Eye Eye exam: Present: normal appearance, PERRL, EOMI Pupils: Present: normal accommodation - ENT ENT exam: Present: normal exam, normal orophraynx, mucous membranes moist, TM's normal bilaterally, normal external ear exam - Neck Neck exam: Present: normal inspection, full ROM. Absent: tenderness - Respiratory Respiratory exam: Present: normal lung sounds bilaterally. Absent: respiratory distress, wheezes, rales, rhonchi, chest wall tenderness, accessory muscle use, decreased breath sounds, prolonged expiratory - Cardiovascular Cardiovascular Exam: Present: regular rate, normal rhythm, normal heart sounds. Absent: systolic murmur, diastolic murmur, rubs, gallop - GI/Abdominal GI/Abdominal exam: Present: soft, tenderness (Palpable left flank tenderness), n ormal bowel sounds. Absent: guarding, rebound, rigid, hyperactive bowel sounds, hypoactive bowel sounds, organomegaly, mass, bruit - Extremities Exam Extremities exam: Present: normal inspection, full ROM, normal capillary refill - Back Exam Back exam: Present: normal inspection, full ROM, tenderness (Palpable left-sided lumbosacral paraspinal musculoskeletal tenderness), muscle spasm, paraspinal tenderness. Absent: CVA tenderness (R), CVA tenderness (L) - Neurological Exam Neurological exam: Present: alert, oriented X3, CN II-XII intact, normal gait, reflexes normal - Psychiatric Psychiatric exam: Present: normal affect, normal mood - Skin Skin exam: Present: warm, dry, intact, normal color. Absent: rash ED Course Vital Signs 09/23/21 20:26 Temperature 98.4 F Pulse Rate 83 Respiratory 18 Rate Blood Pressure 148/84 O2 Sat by Pulse 100 Oximetry ED Medical Decision Making - Lab Data Result diagrams: 09/23/21 21:30 - Radiology Data Radiology results: report reviewed, image reviewed [facility] [address] [place] [address] Cat Scan Report Signed Patient: BEA WILLARD MR#: [id number] : 1990 Acct:[id number] Age/Sex: 31 / F ADM Date: 09/23/21 Loc: ED Attending Dr: Ordering Physician: MC LUCIA Date of Service: 09/24/21 Procedure(s): CT abdomen pelvis wo con Accession Number(s): [id number] cc: MC LUCIA CT ABDOMEN AND PELVIS WITHOUT CONTRAST INDICATION / CLINICAL INFORMATION: LEFT sided flank pain. TECHNIQUE: Axial CT images were obtained through the abdomen and pelvis without IV contrast. All CT scans at this location are performed using CT dose reduction for ALARA by means of automated exposure control. COMPARISON: None available. FINDINGS: LOWER CHEST: No significant abnormality of the imaged chest. LIVER: No focal lesion. No acute findings. GALLBLADDER: No significant abnormality. BILE DUCTS: No significant abnormality. SPLEEN: No significant abnormality. PANCREAS: No significant abnormality. ADRENALS: No significant abnormality. KIDNEYS/URETERS: No stones or hydronephrosis. No solid renal lesion. STOMACH / DUODENUM / SMALL BOWEL: The stomach, duodenum, and small bowel demonstrate no significant abnormality. No specific abnormality of the mesentery demonstrated. COLON: No significant abnormality. APPENDIX: High attenuation material is present within the appendix. Appendix is normal in size and demonstrates no inflammatory change. PERITONEUM: No free air or free fluid are present within the abdomen or pelvis. LYMPH NODES: No significant adenopathy. AORTA / ARTERIES: No significant abnormality. IVC / VEINS: No significant abnormality. URINARY BLADDER: No significant abnormality. REPRODUCTIVE ORGANS: No significant abnormality. ADDITIONAL ABDOMINAL/PELVIC FINDINGS: None. SKELETAL SYSTEM: No significant abnormality. IMPRESSION: 1. No acute findings within the abdomen or pelvis. Signer Name: Viviana Huertas II, MD Signed: 09/24/2021 3:10 AM Workstation Name: [id number] Transcribed By: TYRELL Dictated By: VIVIANA HUERTAS II, MD Electronically Authenticated By: VIVIANA HUERTAS II, MD Signed Date/Time: 09/24/21309 DD/ 7 TD/TT: - Medical Decision Making This is a 31-year-old -[place] female with no past medical history who presents to the ED with complaint of acute onset persistent left flank pain for the last 1 week. Patient states that the pain is constant and persistent and worse with movement. Patient also complains of persistent heavy vaginal bleeding intermittently for the last 5 months. Patient states that she has not been evaluated by her [employer] physician. In the ED, patient is alert and oriented x3 and is not in any distress. Patient was treated for pain in the ED. all lab test results were reviewed and are all nonactionable except for urinalysis that showed urinary tract infection. The abdomen pelvis CT scan without contrast showed no acute abnormalities. On reevaluation, patient's pain is well controlled medication. Patient will discharge home on pain medications and antibiotics and advised to follow-up with her primary care physician or [employer] physician in 7 to 10 days for reevaluation. Patient advised return to the ED immediately if symptoms get worse. - Differential Diagnosis Kidney stone; UTI; DUB; colitis; muscle strain; muscle spasm; back pain Critical care attestation.: If time is entered above; I have spent that time in minutes in the direct care of this critically ill patient, excluding procedure time. ED Disposition Clinical Impression: Acute abdominal pain in left flank, Acute urinary tract infection, Dysfunctional uterine hemorrhage Disposition: 01 HOME / SELF CARE / HOMELESS Is pt being admited?: No Does the pt Need Aspirin: No Condition: Stable Instructions: Flank Pain, Adult, [id number], Urinary Tract Infection, Adult, [id number], Abnormal Uterine Bleeding, [id number], Menorrhagia, [id number] Additional Instructions: All lab test results were reviewed and are all nonactionable except for urinary tract infection in urinalysis. Abdomen pelvis CT scan without contrast showed no acute abnormalities. Therefore take medications with food, drink plenty of fluids and follow-up with your primary care physician or [employer] physician in 7 to 10 days for reevaluation or return to the ED immediately if symptoms get worse. Prescriptions: cephALEXin [Keflex] 500 mg PO Q8HR #30 cap medroxyPROGESTERone ACETATE [Medroxyprogesterone Acetate] 10 mg PO DAILY #14 tab Ibuprofen [Motrin] 800 mg PO Q8HR PRN #30 tablet PRN Reason: Pain , Severe (7-10) methOCARBAMOL [Robaxin TAB] 750 mg PO Q12H PRN #24 tab PRN Reason: Muscle Spasm Referrals: [facility] [Provider Group] - 7-10 days PRANAV HARDWICK MD [Staff Physician] - 7-10 days Forms: Work/School Release Form(ED) Time of Disposition: 04:58 Print Language: AMHARIC
[2021-09-24 05:35] VITALS: BP 146/80
== END 2021-09-24 05:35 | disposition home or self-care (01) ==
LOC: ED 20:22
DX: N39.0 Urinary tract infection, site not specified (principal); N93.9 Abnormal uterine and vaginal bleeding, unspecified; R10.9 Unspecified abdominal pain; Z91.040 Latex allergy status
CPT/HCPCS: 36415; 74176; 81001; 84702; 84703; 85025; 86900; 86901; 87086; 96372; 96374; 99284; J1885; J2405